=== PATIENT | female | born 1995 | race Two or more races ===

== ENCOUNTER 2023-12-27 19:54 | Emergency (ER) | payer OTHER ==
[~2023-12-27] VITALS: Ht 147.3 cm; Wt 71.7 kg
[2023-12-27] MEDS ORDERED: FAMOTIDINE/PF 20 MG/2 ML VIAL IV ONE (20:45)
[2023-12-27] MEDS ORDERED: DIPHENHYDRAMINE HCL 50 MG/ML VIAL 1ML IV ONE (20:45)
[2023-12-27] MEDS ORDERED: ONDANSETRON HCL 2 MG/ML VIAL IV ONE (20:45)
[2023-12-27] MEDS ORDERED: METHYLPREDNISOLONE SOD SUCC 125 MG VIAL IV ONE (20:45)
[2023-12-27] MEDS ORDERED: ONDANSETRON HCL 2 MG/ML VIAL ONE (20:55)
[2023-12-27] MEDS ORDERED: METHYLPREDNISOLONE SOD SUCC 125 MG VIAL ONE (20:55)
[2023-12-27] MEDS ORDERED: DIPHENHYDRAMINE HCL 50 MG/ML VIAL 1ML ONE (20:55)
[2023-12-27] MEDS ORDERED: FAMOtidine 200mg/20ml VIAL ONE (20:56)
== END 2023-12-27 21:57 | disposition home or self-care (01) ==
LOC: ER 19:55
DX: T78.40XA Allergy, unspecified, initial encounter (principal); Z91.013 Allergy to seafood; Z91.018 Allergy to other foods
CPT/HCPCS: 96365; 99282; J1200; J2405; J3490

== ENCOUNTER 2024-04-25 20:17 | Emergency (ER) | payer OTHER ==
[~2024-04-25] VITALS: Ht 147.3 cm; Wt 72.6 kg
[2024-04-25 23:19] LABS: HEMATOCRIT 39.7 % (36.0-45.00); HEMOGLOBIN 13.7 g/dL (12.0-15.00); MEAN CELL VOLUME 86.2 fL (80.00-100.00); MEAN CORPUSCULAR HEMOGLOBIN 29.8 pg (27.00-32.0); MEAN CORPUSCULAR HGB CONC 34.5 g/dl (32.0-36.0); PLATELET COUNT 355 K/uL (150-450); RED BLOOD COUNT 4.61 M/uL (4.00-6.00); RED CELL DISTRIBUTION WIDTH 13.3 % (11.5-14.5)
[2024-04-25] MEDS ORDERED: ONDANSETRON HCL 2 MG/ML VIAL IV ONE (23:45)
[2024-04-26] MEDS ORDERED: 0.9 % SODIUM CHLORIDE 1,000 ML IV ONE (00:15)
[2024-04-26] MEDS ORDERED: DOLOGESIC 500-1 EACH PO (05:30)
[2024-04-26] MEDS ORDERED: ZYNCOF 20-400120 ML PO (05:30)
[2024-04-26] MEDS ORDERED: ONDANSETRON ODT4 MG PO ×2 (05:31→05:32)
== END 2024-04-26 05:43 ==
LOC: ER 20:19
PROVIDERS: Preventive Medicine Public Health & General Preventive Medicine
DX: B34.9 Viral infection, unspecified (principal); R07.89 Other chest pain; Z91.018 Allergy to other foods; Z91.013 Allergy to seafood; Z20.822 Contact with and (suspected) exposure to COVID-19